=== PATIENT | female | born 1970 | race Caucasian/White ===

== ENCOUNTER 2023-05-20 07:47 | Day surgery (SDC) | payer OTHER ==
[2023-05-12 10:20] VITALS: BP 109/71
[~2023-05-20] VITALS: Ht 152.4 cm; Wt 55.5 kg
[2023-05-20 08:12] VITALS: BP 119/84
--- NOTE | 2023-05-20 10:09 | NUR ---
05/20/23 Andrew9 Cherelle Love 0942- PT ARRIVES TO PACU, LEFT LATERAL POSITION. REACTIVE TO VERBAL STIMULUS. ALL MONITORS IN PLACE. PT ON ROOM AIR ON ARRIVAL, LR INFUSING TO RH IV. ABD SOFT, NON DISTENDED. ENCOURAGED TO PASS GAS. 1000- PT DROWSY, RESTING INTERMITTENTLY. PASSING GAS AND GIGGLING WITH EACH EPISODE. NO SIGNS OF DISTRESS. WILL CONTINUE TO MONITOR. PT REPORTS NOT READY FOR SOMETHING TO DRINK OR SITTING UP YET.
[2023-05-20 10:19] VITALS: BP 110/83
--- NOTE | 2023-05-21 06:43 | OR ---
[facility] [address], [place] [address] Signed DATE OF OPERATION: 05/20/2023 SURGEON: Willy Lopez MD PREOPERATIVE DIAGNOSES: 1. History of anal fissure with rectal bleeding in 2012 at age 41. 2. Negative colonoscopy at age 41 in 2012. 3. Screening. POSTOPERATIVE DIAGNOSES: 1. Few left-sided diverticula. 2. Minimal to moderate internal anal skin tags x2. PROCEDURE: Colonoscopy without biopsy. ESTIMATED BLOOD LOSS: None. INDICATIONS: Loretta is a 52-year-old female, who was asked to see me for followup colonoscopy. She was having troublesome rectal bleeding and anal fissure in 2011 at the age of 41. She lived in [place] at that time. Dr. April Brody performed a negative colonoscopy in [place], [place]. She had been asked to follow up in 10 years for repeat screening colonoscopy. She waited through the COVID pandemic. She is here now for a followup screening colonoscopy. She has no lower GI complaints. There is no family history of colon cancer or polyps. In the office, I gave her a pamphlet on colonoscopy. She understands the nature of the test. There is risk including, but not limited to gas bloating, crampy abdominal pain, bleeding, perforation requiring surgery, and missed diagnosis. We also reviewed the written instructions for the bowel prep line by line. We asked for monitored anesthesia care given her daily intake of alcohol and history of tricuspid regurg, although it is not particularly troublesome on her recent ultrasound. She had expressed understanding and wished to proceed. DESCRIPTION OF PROCEDURE: Loretta was taken into our endoscopy suite and placed in the left lateral decubitus position. She was given monitored anesthesia care with propofol infusion per our nurse market research senior project manager. A digital rectal exam was performed and I could feel an internal anal skin tag. She had good sphincter tone. There were no external hemorrhoids. The adult colonoscope was introduced and advanced all the way around into the cecum under direct Electronically Signed By: WILLY LOPEZ MD 05/21/23 0643 PATIENT NAME: LORETTA BENITEZ OPERATIVE REPORT DATE OF : 70 REPORT #: [id number] PHYSICIAN: WILLY LOPEZ MD PCP: ALYSON FLOWERS REPORT IS CONFIDENTIAL AND NOT TO BE RELEASED WITHOUT AUTHORIZATION [facility] [address], [place] [address] Signed visualization of the camera without difficulty. Her prep was quite good. We could easily see the appendiceal orifice and the ileocecal valve. The scope was then slowly withdrawn. We took pictures throughout for photodocumentation. She has just a few diverticula in the left colon. They were small, few in number and scattered about. The rectum was unremarkable. Upon retroflexion of the scope, we can see one small internal anal skin tag and one moderate-sized internal anal skin tag. Really not much in the way of internal hemorrhoid tissue. After this, the gas was suctioned out and colonoscope removed. Loretta tolerated the procedure quite well. RECOMMENDATIONS: Loretta can return in 10 years for repeat screening colonoscopy. Willy Lopez MD ALB/MODL /[id number] cc: MD Alyson Gtz PA Copies: WILLY LOPEZ MD, LINDA PA ~ Electronically Signed By: WILLY LOPEZ MD 05/21/23 0643 PATIENT NAME: LORETTA BENITEZ OPERATIVE REPORT DATE OF : 70 REPORT #: [id number] PHYSICIAN: WILLY LOPEZ MD PCP: ALYSON FLOWERS REPORT IS CONFIDENTIAL AND NOT TO BE RELEASED WITHOUT AUTHORIZATION
== END 2023-05-20 10:30 | disposition home or self-care (01) ==
LOC: DS 07:47 → OPS 07:47 → DS 09:00 → OPS 10:30
PROVIDERS: ATTEND Colon & Rectal Surgery
PROC: 0DJD8ZZ Inspection of Lower Intestinal Tract, Via Natural or Artificial Opening Endoscopic (ICD-10-PCS; principal; 2023-05-20 09:00)
DX: Z12.11 Encounter for screening for malignant neoplasm of colon (principal); K57.30 Diverticulosis of large intestine without perforation or abscess without bleeding; K64.8 Other hemorrhoids; I36.1 Nonrheumatic tricuspid (valve) insufficiency; M81.0 Age-related osteoporosis without current pathological fracture; F10.10 Alcohol abuse, uncomplicated
CPT/HCPCS: 00812; J2001; J2704; J7121